=== PATIENT | male | born 2000 | race Two or more races ===

== ENCOUNTER 2021-10-21 23:57 | Emergency (ER) | payer MEDICAID ==
[2021-10-22 00:59] LABS: CORONAVIRUS COVID-19 NAA POSITIVE (NEGATIVE); INFLUENZA A NAA NEGATIVE (NEGATIVE); INFLUENZA B NAA NEGATIVE (NEGATIVE); RESPIRATORY SYNCYTIAL VIR NAA NEGATIVE (NEGATIVE)
[2021-10-22 01:42] LABS: BLOOD UREA NITROGEN,BUN 11 mg/dL (7.0-18.0); CARBON DIOXIDE,CO2 20.4 mmol/L (21.0-32.0); CHLORIDE,CL 103 mmol/L (98-107); GLUCOSE RANDOM 120 mg/dL (74-106); POTASSIUM,K 3.1 mmol/L (3.5-5.1); SODIUM,NA 138 mmol/L (136-148)
[2021-10-22] MEDS ORDERED: Potassium Chloride 20 MEQ Tab.ER PO STA (01:52)
== END 2021-10-22 02:12 | disposition home or self-care (01) ==
LOC: MW.ED 23:57
DX: U07.1 COVID-19 (principal); Z88.8 Allergy status to other drugs, medicaments and biological substances; Z91.040 Latex allergy status
CPT/HCPCS: 0241U; 36415; 71045; 80053; 85025; 87651; 99284; A9270

== ENCOUNTER 2023-06-12 18:26 | Emergency (ER) | payer MEDICAID ==
[2023-06-12] MEDS ORDERED: Sodium Chloride 0.9% 10 ML Syringe FLUSH PRN (19:31)
[2023-06-12] MEDS ORDERED: Sodium Chloride 0.9% 2.5 ML Syringe FLUSH PRN (19:31)
[2023-06-12 20:04] LABS: BASOPHILS PERCENT AUTO 0.1 % (0.0-1.5); EOSINOPHILS ABSOLUTE AUTO 0.1 K/uL (0.0-0.7); EOSINOPHILS PERCENT AUTO 0.7 % (0.0-7.0); HEMATOCRIT 47.3 % (38.0-50.0); HEMOGLOBIN 16.6 g/dL (13.0-17.0); LYMPHOCYTES ABSOLUTE AUTO 0.9 K/uL (0.6-2.4); LYMPHOCYTES PERCENT AUTO 12.7 % (16.0-40.0); MEAN CORPUSCULAR HEMOGLOBIN 31.8 pg (27.0-32.0); MEAN CORPUSCULAR HGB CONC 35.1 g/dL (31.0-37.0); MEAN CORPUSCULAR VOLUME 90.6 fL (80.0-98.0); MONOCYTES ABSOLUTE AUTO 1.3 K/uL (0.0-0.8); MONOCYTES PERCENT AUTO 19.1 % (0.0-15.0); NEUTROPHILS ABSOLUTE AUTO 4.5 K/uL (1.4-5.7); NEUTROPHILS PERCENT AUTO 67.4 % (48.0-80.0); NRBC ABSOLUTE 0 K/uL; PLATELET COUNT,PLT 142 K/uL (150-400); RED BLOOD CELL COUNT 5.22 M/uL (4.50-5.90); WHITE BLOOD CELL COUNT,WBC 6.71 K/uL (4.0-11.0)
[2023-06-12 20:43] LABS: ALBUMIN 3.9 g/dL (3.4-5.0); BILIRUBIN TOTAL 0.8 mg/dL (0.2-1.0); CALCIUM 8.2 mg/dL (8.5-10.1); CARBON DIOXIDE,CO2 19.2 mmol/L (21.0-32.0); CREATININE 1.1 mg/dL (0.8-1.3); EST CRCL DRUG DOSING (CG) 82.62 mL/min; POTASSIUM,K 2.7 mmol/L (3.5-5.1)
[2023-06-12] MEDS ORDERED: Potassium Chloride 20 MEQ Tab.ER PO STA (20:46)
[2023-06-12] MEDS ORDERED: Amoxicillin/Clavulanate K 875-125 MG Tab PO STA (21:46)
[2023-06-12] MEDS ORDERED: Doxycycline 100 MG Cap PO STA (21:46)
== END 2023-06-12 22:00 | disposition home or self-care (01) ==
LOC: MW.ED 18:26
DX: J18.9 Pneumonia, unspecified organism (principal); E87.6 Hypokalemia; D69.6 Thrombocytopenia, unspecified; F17.210 Nicotine dependence, cigarettes, uncomplicated; Z86.73 Personal history of transient ischemic attack (TIA), and cerebral infarction without residual deficits; Z20.822 Contact with and (suspected) exposure to COVID-19; Z86.16 Personal history of COVID-19; Z79.899 Other long term (current) drug therapy; Z91.040 Latex allergy status; Z88.8 Allergy status to other drugs, medicaments and biological substances
CPT/HCPCS: 36415; 71046; 80053; 83690; 84484; 85025; 85379; 86308; 87635; 87651; 99285; A9270; J3490; 93010; 99283; U0002

== ENCOUNTER 2024-01-20 19:24 | Emergency (ER) | payer MEDICAID ==
[2024-01-20] MEDS: Albuterol/Ipratropium 3.0-0.5 MG/3 ML Neb Soln NEB ONE (20:30)
[2024-01-20 20:56] LABS: CORONAVIRUS COVID-19 NAA NEGATIVE (NEGATIVE); INFLUENZA A NAA NEGATIVE (NEGATIVE); INFLUENZA B NAA NEGATIVE (NEGATIVE); RESPIRATORY SYNCYTIAL VIR NAA NEGATIVE (NEGATIVE)
[2024-01-20] MEDS: Dexamethasone 4 MG Tab PO ONE (21:18)
== END 2024-01-20 21:30 | disposition home or self-care (01) ==
LOC: MW.ED 19:24
DX: J45.901 Unspecified asthma with (acute) exacerbation (principal); Z88.8 Allergy status to other drugs, medicaments and biological substances; Z91.040 Latex allergy status; Z79.899 Other long term (current) drug therapy; Z86.19 Personal history of other infectious and parasitic diseases; Z86.16 Personal history of COVID-19
CPT/HCPCS: 0241U; 71046; 99285; J8540; J7620-GY

== ENCOUNTER 2024-01-26 20:19 | Emergency (ER) | payer MEDICAID ==
[2024-01-26] MEDS: predniSONE 10 MG Tab PO ONE (20:50)
== END 2024-01-26 21:05 | disposition home or self-care (01) ==
LOC: MW.ED 20:19
DX: J45.901 Unspecified asthma with (acute) exacerbation (principal); Z91.040 Latex allergy status; Z88.8 Allergy status to other drugs, medicaments and biological substances; Z79.51 Long term (current) use of inhaled steroids; Z79.899 Other long term (current) drug therapy; Z86.16 Personal history of COVID-19
CPT/HCPCS: 99285; A9270

== ENCOUNTER 2024-02-08 17:55 | Emergency (ER) | payer MEDICAID ==
[2024-02-08 19:24] LABS: CORONAVIRUS COVID-19 NAA NEGATIVE (NEGATIVE); INFLUENZA A NAA NEGATIVE (NEGATIVE); INFLUENZA B NAA NEGATIVE (NEGATIVE); RESPIRATORY SYNCYTIAL VIR NAA NEGATIVE (NEGATIVE)
[2024-02-08] MEDS: Amoxicillin/Clavulanate K 875-125 MG Tab PO ONE (19:31)
== END 2024-02-08 19:38 | disposition home or self-care (01) ==
LOC: MW.ED 17:55
DX: J32.9 Chronic sinusitis, unspecified (principal); Z75.8 Other problems related to medical facilities and other health care; Z88.8 Allergy status to other drugs, medicaments and biological substances; Z91.040 Latex allergy status; Z79.51 Long term (current) use of inhaled steroids; Z79.899 Other long term (current) drug therapy; Z86.16 Personal history of COVID-19
CPT/HCPCS: 0241U; 87651; 99283; A9270

== ENCOUNTER 2024-06-27 13:37 | Emergency (ER) | payer MEDICAID | END 2024-06-27 15:42 | disposition home or self-care (01) | LOC: MW.ED 13:37 | DX: Z76.0 Encounter for issue of repeat prescription (principal); Z75.8 Other problems related to medical facilities and other health care; F17.210 Nicotine dependence, cigarettes, uncomplicated; Z79.899 Other long term (current) drug therapy; Z91.040 Latex allergy status; Z88.8 Allergy status to other drugs, medicaments and biological substances | CPT/HCPCS: 99281; 99283 ==

== ENCOUNTER 2024-11-20 18:03 | Emergency (ER) | payer MEDICAID ==
[2024-11-20 18:55] LABS: BASOPHILS ABSOLUTE AUTO 0.03 K/uL (0.00-0.20); BASOPHILS PERCENT AUTO 0.2 % (0.0-1.0); EOSINOPHILS ABSOLUTE AUTO 0.02 K/uL (0.00-0.45); EOSINOPHILS PERCENT AUTO 0.2 % (0.0-6.0); HEMATOCRIT 43.2 % (42.0-52.0); HEMOGLOBIN 15.2 g/dL (14.0-18.0); IMMATURE GRAN ABSOLUTE AUTO 0.09 K/uL (0.00-0.05); IMMATURE GRAN PERCENT AUTO 0.7 % (0.0-0.4); LYMPHOCYTES ABSOLUTE AUTO 0.64 K/uL (1.00-4.80); LYMPHOCYTES PERCENT AUTO 4.8 % (24.0-44.0); MEAN CORPUSCULAR HEMOGLOBIN 32.2 pg (28.0-32.0); MEAN CORPUSCULAR HGB CONC 35.2 g/dL (32.0-36.0); MEAN CORPUSCULAR VOLUME 91.5 fL (83.0-99.0); MEAN PLATELET VOLUME 11.6 fL (9.4-12.4); MONOCYTES ABSOLUTE AUTO 0.89 K/uL (0.00-0.80); MONOCYTES PERCENT AUTO 6.7 % (0.0-8.0); NEUTROPHILS ABSOLUTE AUTO 11.62 K/uL (1.80-7.70); NEUTROPHILS PERCENT AUTO 87.4 % (41.0-71.0); PLATELET COUNT,PLT 153 K/uL (150-400); RED BLOOD CELL COUNT 4.72 M/uL (4.52-5.90); WHITE BLOOD CELL COUNT,WBC 13.29 K/uL (3.9-11.3)
[2024-11-20] MEDS ORDERED: Sodium Chloride 0.9% 1,000 ML IV ONE (19:04)
[2024-11-20 19:26] LABS: A/G RATIO 1.3 (0.9-1.6); ALBUMIN 4.3 g/dL (3.4-5.0); BILIRUBIN TOTAL 0.5 mg/dL (0.2-1.0); CALCIUM 8.9 mg/dL (8.5-10.1); CARBON DIOXIDE,CO2 23.5 mmol/L (21.0-32.0); CREATININE 1.3 mg/dL (0.8-1.3); EST CRCL DRUG DOSING (CG) 66.5 mL/min; POTASSIUM,K 3.8 mmol/L (3.5-5.1); PROTEIN TOTAL,TP 7.6 g/dL (6.4-8.2)
== END 2024-11-20 21:15 | disposition left against medical advice (07) ==
LOC: MW.ED 18:03
DX: Z53.21 Procedure and treatment not carried out due to patient leaving prior to being seen by health care provider (principal)
CPT/HCPCS: 36415; 80053; 83690; 85025

== ENCOUNTER 2024-11-22 14:10 | Emergency (ER) | payer MEDICAID ==
[2024-11-22] MEDS: Sodium Chloride 0.9% 1,000 ML IV ONE (14:33)
[2024-11-22] MEDS: Ondansetron 4 MG/2 ML SDV IVPUSH ONE (14:36)
[2024-11-22] MEDS: Ketorolac 30 MG/ML SDV IVPUSH ONE (14:36)
[2024-11-22 14:40] LABS: BASOPHILS ABSOLUTE AUTO 0.02 K/uL (0.00-0.20); BASOPHILS PERCENT AUTO 0.2 % (0.0-1.0); EOSINOPHILS ABSOLUTE AUTO 0.09 K/uL (0.00-0.45); HEMATOCRIT 45.7 % (42.0-52.0); HEMOGLOBIN 16.2 g/dL (14.0-18.0); IMMATURE GRAN ABSOLUTE AUTO 0.06 K/uL (0.00-0.05); IMMATURE GRAN PERCENT AUTO 0.7 % (0.0-0.4); LYMPHOCYTES ABSOLUTE AUTO 0.91 K/uL (1.00-4.80); LYMPHOCYTES PERCENT AUTO 10.3 % (24.0-44.0); MEAN CORPUSCULAR HEMOGLOBIN 32.4 pg (28.0-32.0); MEAN CORPUSCULAR HGB CONC 35.4 g/dL (32.0-36.0); MEAN CORPUSCULAR VOLUME 91.4 fL (83.0-99.0); MEAN PLATELET VOLUME 11.5 fL (9.4-12.4); MONOCYTES ABSOLUTE AUTO 0.81 K/uL (0.00-0.80); MONOCYTES PERCENT AUTO 9.2 % (0.0-8.0); NEUTROPHILS ABSOLUTE AUTO 6.91 K/uL (1.80-7.70); NEUTROPHILS PERCENT AUTO 78.6 % (41.0-71.0); PLATELET COUNT,PLT 159 K/uL (150-400)
[2024-11-22 15:08] LABS: A/G RATIO 1.2 (0.9-1.6); ALBUMIN 4.4 g/dL (3.4-5.0); BILIRUBIN TOTAL 0.8 mg/dL (0.2-1.0); CALCIUM 9.4 mg/dL (8.5-10.1); CARBON DIOXIDE,CO2 25.1 mmol/L (21.0-32.0); EST CRCL DRUG DOSING (CG) 106.08 mL/min; POTASSIUM,K 3.4 mmol/L (3.5-5.1); PROTEIN TOTAL,TP 8.1 g/dL (6.4-8.2)
[2024-11-22] MEDS: Iopamidol 755 MG/ML 500 ML Multipack Bottle IVPUSH STA (15:11)
[2024-11-22 15:56] LABS: APPEARANCE,URINE CLOUDY; BILIRUBIN,URINE NEGATIVE (NEGATIVE); COLOR,URINE YELLOW; GLUCOSE,URINE NEGATIVE (NEGATIVE); KETONES,URINE TRACE mg/dL (NEGATIVE); LEUKOCYTE ESTERASE,URINE NEGATIVE (NEGATIVE); NITRITE,URINE NEGATIVE (NEGATIVE); OCCULT BLOOD,URINE LARGE (NEGATIVE); PH,URINE 5.5 (5.0-8.0); PROTEIN,URINE 30 mg/dL (NEGATIVE); UROBILINOGEN,URINE 0.2 EU/dL (<2.0)
[2024-11-22 16:05] LABS: EPITHELIAL CELLS,URINE RARE (NONE-FEW); RBC,URINE 30-40 (0-2/HPF); WBC,URINE 0-2 (0-5/HPF)
[2024-11-22 16:06] LABS: BACTERIA,URINE RARE (NEGATIVE)
== END 2024-11-22 16:41 | disposition home or self-care (01) ==
LOC: MW.ED 14:10
DX: N13.2 Hydronephrosis with renal and ureteral calculous obstruction (principal); R19.5 Other fecal abnormalities; Z91.040 Latex allergy status; Z91.011 Allergy to milk products; Z88.8 Allergy status to other drugs, medicaments and biological substances; Z79.899 Other long term (current) drug therapy; Z75.8 Other problems related to medical facilities and other health care
CPT/HCPCS: 36415; 74177; 80053; 81001; 83690; 83735; 85025; 87428; 96361; 96374; 96375; 99284; J1885; J2405; J7030; Q9967